=== PATIENT | female | born 1990 | race American Indian/Alaskan Native ===

== ENCOUNTER 2019-10-29 10:44 | Emergency (ER) | payer OTHER ==
[2019-10-29 11:10] VITALS: BP 153/91; PULSE 75
[2019-10-29] MEDS ORDERED: Polymyxin B/Trimethoprim 10 ML Bottle EYELF ONE (11:46)
[2019-10-29] MEDS ORDERED: Erythromycin Base 0.5% Ophth Oint 1 GM Tube EYELF ONE (11:52)
--- NOTE | 2019-10-29 12:08 | EDM.PDOC ---
ED HPI GENERAL MEDICAL PROBLEM - General Chief Complaint: Eye Problems Stated Complaint: EYE REDNESS Time Seen by Provider: 10/29/19 11:19 Source of Information: Reports: Patient, RN Notes Reviewed History Limitations: Reports: No Limitations - History of Present Illness INITIAL COMMENTS - FREE TEXT/NARRATIVE: Patient is a 29-year-old female who presents to the ED for the evaluation of a red left eye. Patient notes that this started Wednesday night, she noticed some eye irritation, redness. She notes that she had some goop coming out of the left eye in the morning as well. She has not had any viral upper respiratory illness prior to this. She denies any fevers or chills, or any other symptoms. Left Eye Pain Score (Numeric/FACES): 3 - Related Data Allergies Allergy/AdvReac Type Severity Reaction Status Date / Time No Known Allergies Allergy Verified 08/28/15 21:08 Home Meds: Home Meds . [No Known Home Meds] 08/28/15 [History] Past Medical History - Past Health History Medical/Surgical History: Denies Medical/Surgical History Social & Family History - Tobacco Use Smoking Status *Q: Never Smoker - Caffeine Use Caffeine Use: Reports: Coffee, Soda - Recreational Drug Use Recreational Drug Use: No ED ROS GENERAL - Review of Systems Review Of Systems: See Below Constitutional: Denies: Fever, Chills HEENT: Reports: Eye Discharge (Left eye), Eye Pain (Left eye) Respiratory: Denies: Shortness of Breath Cardiovascular: Denies: Chest Pain GI/Abdominal: Denies: Abdominal Pain, Nausea, Vomiting Neurological: Denies: Headache ED EXAM GENERAL W FULL EYE - Physical Exam Exam: See Below Exam Limited By: No Limitations General Appearance: Alert, WD/WN, No Apparent Distress Eye Exam: Right Eye: Normal Inspection, Left Eye: Conjunctival Injection, Bilateral Eye: EOMI, PERRL Eyelids: Bilateral: Normal Appearance Conjunctiva & Sclera: Right: Normal Appearance, Left: Discharge, Injected Cornea Exam: Bilateral: Normal Appearance Extraocular Movements: Bilateral: Intact Pupils: Normal Accommodation Pupillary Size: Bilateral: 3 mm Pupillary Reaction: Bilateral: Brisk Ears: Normal External Exam, Normal Canal, Hearing Grossly Normal, Normal TMs Throat/Mouth: Normal Inspection, Normal Lips, Normal Teeth, Normal Gums, Normal Oropharynx, Normal Voice, No Airway Compromise Respiratory/Chest: No Respiratory Distress, Lungs Clear, Normal Breath Sounds, No Accessory Muscle Use, Chest Non-Tender Cardiovascular: Normal Peripheral Pulses, Regular Rate, Rhythm, No Murmur GI/Abdominal: Normal Bowel Sounds, Soft, Non-Tender, No Distention, No Mass Extremities: Normal Inspection, Normal Capillary Refill Neurological: Alert, Oriented, Normal Cognition, No Motor/Sensory Deficits Psychiatric: Normal Affect, Normal Mood Skin Exam: Warm, Dry, Intact, Normal Color, No Rash Course - Vital Signs Last Recorded V/S: Last Vital Signs Temp 97.1 F 10/29/19 11:09 Pulse 75 10/29/19 11:09 Resp 20 10/29/19 11:09 BP 153/91 H 10/29/19 11:09 Pulse Ox 97 10/29/19 11:09 - Orders/Labs/Meds Meds: Medications Discontinued Medications Generic Name Dose Route Start Last Admin Trade Name Shay PRN Reason Stop Dose Admin Erythromycin 1 gm 10/29/19 11:52 Erythromycin 0.5% Ophth Oint EYELF 10/29/19 11:53 ONETIME ONE Polymyxin/Trimethoprim Sulfate 1 ml 10/29/19 11:46 Polytrim Ophth Soln EYELF 10/29/19 11:47 ONETIME ONE - Re-Assessments/Exams Free Text/Narrative Re-Assessment/Exam: 10/29/19 12:03 Patient presents to the ED for evaluation of a red right eye with discharge. Clinically the patient is suffering from a bacterial conjunctivitis, will treat as such. He will be given erythromycin ointment this ER, it does not appear to be moderate to severe. Departure - Departure Time of Disposition: 12:04 Disposition: Home, Self-Care 01 Condition: Good Clinical Impression: Conjunctivitis Qualifiers: Conjunctivitis type: acute Acute conjunctivitis type: bacterial Laterality: left Qualified Code(s): H10.32 - Unspecified acute conjunctivitis, left eye - Discharge Information *PRESCRIPTION DRUG MONITORING PROGRAM REVIEWED*: No *COPY OF PRESCRIPTION DRUG MONITORING REPORT IN PATIENT STEPHEN: No Instructions: Bacterial Conjunctivitis, [id number] Referrals: PCP,None [Primary Care Provider] - Additional Instructions: You were evaluated in the ED today for your red right eye. Symptoms and history are consistent with bacterial conjunctivitis. You were given erythromycin ointment, please use as directed. Please return to the ER at any time if your symptoms change or worsen. Sepsis Event Note - Evaluation Sepsis Screening Result: No Definite Risk - Focused Exam Vital Signs: Vital Signs Temp Pulse Resp BP Pulse Ox 10/29/19 11:09 97.1 F 75 20 153/91 H 97 Date Exam was Performed: 10/29/19 Time Exam was Performed: 12:03
== END 2019-10-29 12:19 | disposition home or self-care (01) ==
LOC: JD.ED 10:44
DX: H10.32 Unspecified acute conjunctivitis, left eye (principal)
CPT/HCPCS: 99282; A9270